=== PATIENT | male | born 1975 | race Caucasian/White ===

== ENCOUNTER → 2024-03-03 08:05 | Outpatient (REF) | payer OTHER, SELFPAY | LOC: HWRAD 08:05 | PROVIDERS: ATTENDING PHYSICIAN Family Medicine | DX: M25.561 Pain in right knee (principal); M25.562 Pain in left knee | CPT/HCPCS: 73564 ==

== ENCOUNTER → 2025-02-18 15:01 | Outpatient (REF) | payer OTHER, SELFPAY | LOC: HWRAD 15:01 | PROVIDERS: ATTENDING PHYSICIAN Family Medicine | DX: M1A.9XX0 Chronic gout, unspecified, without tophus (tophi) (principal) | CPT/HCPCS: 73630 ==